=== PATIENT | male | born 1930 | race Caucasian/White ===

== ENCOUNTER → 2016-09-22 | Outpatient (CLI) | payer MEDICARE ==
[~2016-09-22] MED LIST: ALBUTEROL17 GM INH; ASPIRIN PO; AUGMENTIN875 M1 PO; AZITHROMYCIN250 MG PO; B STRESS PO; DESYREL50 MG PO; GINKO BILOBA PO; HYDROCODONE-A1 UDTA3 PO; IMDUR PO; MULTI-VITAMIN1 TAB PO; NITROGYLCERIN SUBLINGUAL; NORVASC PO; OMNICEF300 M1 PO; PLAVIX PO; PREDNISONE; SPIRIVA18 MCG INH; SYMBICORT INH
--- NOTE | ~2016-09-22 | CT16 ---
[facility] A Service of [facility] & [facility] RADIOLOGY TEXT RESULTS PATIENT: MARIEL LIANG LOCATION: [facility] : 32 UNIT #: [id number] AGE: [address]: Maryjo Guevara SEX: M ORDER DR: [id number] [facility] [address] [place], [place] [address] [id number] O MR#: [id number] Acc #: [id number] NAME: MARIEL LIANG. : 1930 SEX: M STUDY DATE/TIME: 09/22/2016 15:16 UNIT: [facility] ROOM: STUDY DESCRIPTION: CT Angio Chest for PE Attending Physician: Maryjo Guevara A.P.R.N. Referring Physician: Maryjo Guevara A.P.R.N. Ordering Physician: Maryjo Guevara A.P.R.N. Primary Care Physician: Jarrell Montano M.D. MEDICAL IMAGING REPORT This report is preliminary unless electronic signature is present EXAM CT chest with contrast, pulmonary arteriography protocol. DATE OF EXAM 09/22/2016 HISTORY 86-year-old male with 1-day history of new onset shortness of air and chest pain with cough. He has a history of pulmonary emphysema. Office chest x-ray reportedly shows nodular opacity in the right midlung. TECHNIQUE CT examination of the chest was performed with IV contrast using pulmonary arteriography protocol. 3-D CTA images of the pulmonary arteries were reformatted in multiple planes. This CT exam was performed with one or more of the following radiation dose reduction techniques: automatic exposure control, adjustment of mA and/or kV according to patient size, and iterative reconstruction. COMPARISON CTA chest, 02/19/2015. FINDINGS There is no evidence of pulmonary embolism. Normal-caliber thoracic aorta. Heart size is normal, there is no significant pericardial effusion. Calcified mitral valve annulus. Lung images show advanced diffuse centrilobular and paraseptal emphysema. There is also extensive central bronchial wall thickening, and there are multisegmental regions of ill-defined centrilobular nodularity and peripheral tree-in-bud interstitial nodularity, highly suggestive of infectious bronchiolitis. There is no airspace consolidation to suggest pneumonitis, and there is no pleural effusion. [facility] A Service of [facility] RADIOLOGY TEXT RESULTS PATIENT: MARIEL LIANG LOCATION: [facility] : 32 UNIT #: [id number] AGE: [address]: Maryjo Guevara SEX: M ORDER DR: There is a suspicious, irregular pulmonary nodule in the superior segment right lower lobe abutting the major fissure measuring 2.0 x 1.2 x 1.4 cm. 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 This is new since the prior CT study. Mild scarring and volume loss in the right middle lobe. Chronic pleural calcification along the right hemidiaphragm. Mildly enlarged bilateral hilar lymph nodes measuring up to 2.1 cm on the right and 1.9 cm on the left are nonspecific. Limited images through the uppermost abdomen are unremarkable. 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 IMPRESSION 1. No evidence of pulmonary embolism or other acute vascular abnormality within the chest. 2. Severe diffuse pulmonary emphysema. CT findings suggesting multisegment acute infectious bronchiolitis and bronchitis as noted above. 3. Malignant-appearing irregular nodule in the superior segment right lower lobe abutting the major fissure measuring up to 2 cm. The appearance is concerning for bronchogenic carcinoma. This lesion was not present on previous chest CT of 02/19/2015. Consider follow-up PET/CT scan. 4. Mildly enlarged bilateral hilar lymph nodes are nonspecific. 5. Chronic scarring and mild volume loss in the right middle lobe. Chronic-appearing pleural calcification on the right hemidiaphragm. 6. 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 STAT * RESULT Dictated by... Alex Ward M.D. THIS IS AN ELECTRONICALLY VERIFIED REPORT Alex Ward M.D. at 09/22/2016 6:48 PM NÉSTOR/daryn TD: 09/22/2016 16:14 JOB #: [id number] MEDICAL IMAGING REPORT Page 1 of 1 COPY
[2016-09-22 15:15] LABS: POC - CREATININE 0.83 mg/dL (0.64-1.27); POC - GFR >60.0 mL/min (>60)
== END | disposition home or self-care (01) ==
LOC: CCAT 14:39
PROVIDERS: Registered Nurse
DX: J44.9 Chronic obstructive pulmonary disease, unspecified (principal); R06.00 Dyspnea, unspecified; R07.1 Chest pain on breathing; J43.9 Emphysema, unspecified; R91.8 Other nonspecific abnormal finding of lung field; R59.0 Localized enlarged lymph nodes; J98.4 Other disorders of lung; J94.8 Other specified pleural conditions; I70.8 Atherosclerosis of other arteries
CPT/HCPCS: 71275; 82565; Q9967

== ENCOUNTER → 2016-11-18 | Outpatient (CLI) | payer MEDICARE ==
--- NOTE | ~2016-11-18 | NM8 ---
[facility] A Service of [facility] RADIOLOGY TEXT RESULTS PATIENT: MARIEL LIANG LOCATION: [facility] : 32 UNIT #: [id number] AGE: [address]: Abelino Boewr MD SEX: M ORDER DR: [id number] [facility] [address] [place], [place] [address] [id number] O MR#: [id number] Acc #: [id number] NAME: MARIEL LIANG : 1930 SEX: M STUDY DATE/TIME: 11/18/2016 13:18 UNIT: [facility] ROOM: STUDY DESCRIPTION: MA Bone or Joint Whole Body Attending Physician: Abelino Bower M.D. Referring Physician: Abelino Bower M.D. Ordering Physician: Abelino Bower M.D. Primary Care Physician: Jarrell Montano M.D. MEDICAL IMAGING REPORT This report is preliminary unless electronic signature is present EXAM Whole-body bone scan, 11/18/2016. HISTORY Order states bone scan for abnormal T7 vertebral body. X-rays of hot spots, if needed. Stage III COPD. Solitary pulmonary nodule. History sheet states chest pain for years. No falls. History of arthritis, right ankle. No known trauma. Mass right lower lung. C7 x[facility]ray at [facility]. PET scan at [facility]. No history of fractures. COMPARISON CT angiogram of the chest 09/22/2016, PET/CT scan 10/16/2016. CT chest PE protocol 02/19/2015. TECHNIQUE The patient received 28 mCi Technetium-99m MDP intravenously and anterior and posterior whole-body scans were supplemented by spot images of the calvaria and thorax. FINDINGS There is no definitive evidence of osteoblastic metastatic disease. In the region of PET concern at T7, there is no definitive abnormal uptake. There is equivocal minimal transversely oriented uptake that favors spondylosis. The lumbosacral junction uptake on the right corresponds with degenerative disc disease and facet arthrosis by PET/CT of 10/16/2016. Kidneys are visualized. Uptake in the right ankle is moderate in intensity. 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 [facility] A Service of [facility] RADIOLOGY TEXT RESULTS PATIENT: MARIEL LIANG LOCATION: [facility] : 32 UNIT #: [id number] AGE: [address]: Abelino Bower MD SEX: M ORDER DR: There is minimal bilateral knee uptake suggestive of minimal arthrosis. IMPRESSION 1. There is no definitive scintigraphic evidence of metastatic disease. There is no concerning uptake in the mid thoracic region to correspond with the PET/CT finding of T7. A small sclerotic lesion in the T8 vertebral body on the PET/CT of 09/22/2016 is unchanged from prior CT of 02/19/2015 and is compatible with a benign finding. 2. Right ankle uptake most likely arthritic. Dictated by... Esperanza Jorgensen M.D. THIS IS AN ELECTRONICALLY VERIFIED REPORT Esperanza Jorgensen M.D. at 11/23/2016 8:10 AM BREANNA/lc TD: 11/20/2016 12:01 JOB #: [id number] MEDICAL IMAGING REPORT Page 1 of 1 COPY
== END | disposition home or self-care (01) ==
LOC: CNUC 09:23
DX: R91.1 Solitary pulmonary nodule (principal); J44.9 Chronic obstructive pulmonary disease, unspecified; M89.9 Disorder of bone, unspecified
CPT/HCPCS: 78306; A9503

== ENCOUNTER → 2016-12-17 | Outpatient (CLI) | payer MEDICARE ==
[2016-12-21 09:20] LABS: ARTERIAL BLD GAS O2 SATURATION 95.8 % (90.0-100.0); ARTERIAL BLOOD GAS ALLEN TEST NORMAL; ARTERIAL BLOOD GAS ART SITE RIGHT RADIAL; ARTERIAL BLOOD GAS CARBOXY HB 0.8 %sat (0.0-9.0); ARTERIAL BLOOD GAS DELIVERY ROOM AIR; ARTERIAL BLOOD GAS HCO3 26.9 mmol/L; ARTERIAL BLOOD GAS MET HB 0.6 %sat (0.0-2.0); ARTERIAL BLOOD GAS PO2 72.9 mmHg (80.0-100); ARTERIAL BLOOD GAS pH 7.425 (7.350-7.450); ARTERIAL DRAW? YES
== END | disposition home or self-care (01) ==
LOC: CLAB 13:48
PROVIDERS: Surgery
DX: J44.9 Chronic obstructive pulmonary disease, unspecified (principal); R91.1 Solitary pulmonary nodule
CPT/HCPCS: 36600; 82803

== ENCOUNTER → 2016-12-28 | Outpatient (CLI) | payer MEDICARE ==
--- NOTE | ~2016-12-28 | US37 ---
[facility] A Service of [facility] & [facility] RADIOLOGY TEXT RESULTS PATIENT: MARIEL LIANG LOCATION: [facility] : 32 UNIT #: [id number] AGE: [address]: Shashi Leonard MD SEX: M ORDER DR: [id number] [facility] [address] [place], [place] [address] [id number] O MR#: [id number] Acc #: [id number] NAME: MARIEL LIANG : 1930 SEX: M STUDY DATE/TIME: 12/28/2016 15:24 UNIT: [facility] ROOM: STUDY DESCRIPTION: US Carotid W/Doppler Bilateral Attending Physician: Shashi Leonard M.D. Referring Physician: Shashi Leonard M.D. Ordering Physician: Shashi Leonard M.D. Primary Care Physician: Jarrell Montano M.D. MEDICAL IMAGING REPORT This report is preliminary unless electronic signature is present EXAM Carotid Doppler bilateral 12/28/2016 HISTORY Carotid bruit on physical examination 12/17/2016. Loss of balance for 2 months. Carotid bruit on left side. Blurred vision for 2 months. Hypertension. Evaluate for carotid stenosis. FINDINGS Marlow-scale carotid artery images were obtained as well as Doppler waveform spectral analysis and color flow Doppler imaging. Examination was interpreted according to NASCET criteria. There is no hemodynamically significant stenosis in either carotid artery. Peak systolic velocity in the right and left internal carotid arteries is 79 cm/sec and 119 cm/sec respectively. Antegrade blood flow is seen in the right vertebral artery. There is retrograde flow in the left vertebral artery. Clinical correlation recommended. Calcified plaque is seen bilaterally. IMPRESSION 1. No hemodynamically significant stenosis in either carotid artery. 2. Antegrade blood flow in the right vertebral artery. There is retrograde flow in the left vertebral artery. Clinical correlation recommended. Dictated by... Hong Magaña M.D. THIS IS AN ELECTRONICALLY VERIFIED REPORT Hong Magaña M.D. at 12/29/2016 2:14 PM LYUBOV/ivory [facility] A Service of [facility] & [facility] RADIOLOGY TEXT RESULTS PATIENT: MARIEL LIANG LOCATION: [facility] : 32 UNIT #: [id number] AGE: [address]: Shashi Leonard MD SEX: M ORDER DR: TD: 12/29/2016 05:32 JOB #: [id number] MEDICAL IMAGING REPORT Page 1 of 1 COPY
== END | disposition home or self-care (01) ==
LOC: CRC 14:00 → CNIV 14:49 → CRC 15:30
DX: R09.89 Other specified symptoms and signs involving the circulatory and respiratory systems (principal)
CPT/HCPCS: 93880

== ENCOUNTER → 2016-12-29 | Outpatient (CLI) | payer MEDICARE ==
--- NOTE | ~2016-12-29 | PFT ---
[id number] [facility] [address] [place], [place] [address] [id number] O MR#: [id number] NAME: MARIEL LIANG ROOM: SEX: M STUDY DATE/TIME: : 1930 AGE: 86 STUDY DESCRIPTION: Attending Physician: Shashi Leonard M.D. Referring Physician: Shashi Leonard M.D. Primary Care Physician: Jarrell Montano M.D. PULMONARY DIAGNOSTIC REPORT EXAM Pulmonary Function Test DESCRIPTION Spirometry reveals a severe obstructive defect. There is a borderline response to bronchodilators of 8% yielding an FEV1 of 910 mL, only 37% of predicted. Flow volume loop is consistent with a severe obstructive defect. Lung volumes suggest hyperinflation and air trapping. Diffusion capacity is severely reduced. Changes are consistent with very severe emphysema. Dictated by... Glenn Peña M.D. NICOLÁS/zakia TD: 12/30/2016 07:57 JOB #: [id number] PULMONARY DIAGNOSTIC REPORT Page 1 of 1
== END | disposition home or self-care (01) ==
LOC: CRC 12:33
DX: J44.9 Chronic obstructive pulmonary disease, unspecified (principal)
CPT/HCPCS: 94060; 94726; 94729